=== PATIENT | female | born 1985 | race Hispanic/Latino ===

== ENCOUNTER 2024-09-14 10:00 | Emergency (ER) | payer SELFPAY ==
[2024-09-14] MEDS ORDERED: Ondansetron PF 4 MG/2 ML Vial ONE (10:32)
[2024-09-14] MEDS ORDERED: Ketorolac Tromethamine 30 MG (1 mL) VIAL ONE (10:32)
[2024-09-14 11:21] LABS: #Basophils 0.03 10x3/uL (0.0-0.2); #Eosinophils Less than 0.03 10x3/uL (0.0-0.5); #Monocytes 0.24 10x3/uL (0.0-1.1); #Neutrophils 10.38 10x3/uL (1.5-8.4); %Basophils 0.3 % (0.0-2.0); %Eosinophils 0.0 % (0.0-6.0); %Lymphocytes 8.1 % (18.0-47.0); %Monocytes 2.1 % (0.0-10.0); %Neutrophils 88.9 % (40.0-75.0); Hematocrit 40.5 % (34.9-44.5); Hemoglobin 13.7 g/dL (12.0-15.5); Mean Corpuscular Hemoglobin 29.8 pg (27.0-33.0); Mean Corpuscular Volume 88.0 fL (81.6-98.3); Platelet Count 294 10x3/uL (150-450); Red Blood Cell (RBC) Count 4.60 10x6/uL (3.90-5.03); White Blood Cell (WBC) Count 11.66 10x3/uL (3.5-10.5)
[2024-09-14 11:35] LABS: ALT (SGPT) 18 U/L (Less than 34); AST (SGOT) 24 U/L (11-34); Albumin 4.9 g/dL (3.1-4.5); Alkaline Phosphatase 72 U/L (40-110); Anion Gap 17 mmol/L (10-20); BUN (Urea Nitrogen) 11 mg/dL (7.0-18.7); Bilirubin, Total 0.3 mg/dL (0.3-1.2); Calc. Creatinine Clearance 0 mL/min (70-130); Calcium 9.8 mg/dL (7.8-10.44); Carbon Dioxide 19 mmol/L (22-29); Chloride 107 mmol/L (98-107); Globulin 4.4 g/dL (2.4-3.5); Glucose 135 mg/dL (70-105); Potassium 4.0 mmol/L (3.5-5.1); Sodium 139 mmol/L (136-145)
[2024-09-14 12:19] LABS: Glucose, Urine (Dipstick) Normal (Negative); Leukocyte 500 (Negative); Protein, Urine (Dipstick) 15 mg/dl (Neg-Trace); Specific Gravity, Urine 1.010 (1.005-1.030)
[2024-09-14 12:25] LABS: Pregnancy Test - Urine (BHCG) Negative (Negative); Pregu Control Background? CLEAR/WHITE (CLR/WHITE); Pregu Control Bar Appear? YES (CONTROL BAR)
[2024-09-14 12:39] LABS: Bacteria/HPF 4+ HPF (None Seen); CAUTI Indications for Culture Pelvic or flank pain; WBC/HPF 21-50 HPF (0-3)
[2024-09-14 12:40] LABS: Urine Culture Reflex Yes Yes
[2024-09-14] MEDS ORDERED: cefTRIAXone (ROCEPHIN) 2 GM VIAL ONE (12:51)
== END 2024-09-14 15:55 | disposition short-term general hospital (02) ==
LOC: CSHERS 10:00
DX: N20.1 Calculus of ureter (principal); N39.0 Urinary tract infection, site not specified
CPT/HCPCS: 74176; 80053; 81001; 81025; 85025; 87086; 96374; 96375; J0696; J1885; J2405